=== PATIENT | female | born 1955 | race Caucasian/White ===

== ENCOUNTER 2017-10-27 22:52 | Observation (INO) | payer OTHER ==
[2017-10-27] MEDS ORDERED: NS 0.9% 1000 ML* 1,000 ML IV ONE (23:00)
[2017-10-27 23:25] LABS: ABS Basophils 0.1 10^3/ul (0-0.2); ABS Eosinophils 0.2 10^3/ul (0-0.6); ABS Lymphocytes 1.4 10^3/ul (1.0-4.8); ABS Monocytes 0.5 10^3/ul (0-0.8); ABS Neutrophils 6.5 10^3/ul (1.5-7.7); ABS Nucleated RBC 0 10^3/ul; Eosinophil % 2.2 % (0-6); Hematocrit 45 % (35-47); Hemoglobin 15.5 g/dl (12.0-16.0); Lymphocyte % 16.2 % (25-47); Mean Corpuscular HGB Conc 34 g/dl (31-36); Mean Corpuscular Hemoglobin 30 pg (27-31); Mean Corpuscular Volume 88 fL (80-97); Mean Platelet Volume 8 um3 (7.4-10.4); Nucleated Red Blood Cells % 0; Platelet Count 216 10^3/ul (150-450); Red Blood Count 5.09 10^6/ul (4.0-5.4); Red Cell Distribution Width 15 % (10.5-15); White Blood Count 8.7 10^3/ul (3.5-10.8)
[2017-10-27 23:34] LABS: INR 0.92 (0.77-1.02)
[2017-10-27] MEDS ORDERED: Alteplase* 100 MG VIAL ONE (23:40)
[2017-10-27] MEDS ORDERED: Alteplase* 100 MG VIAL IV ONE ×2 (23:41)
[2017-10-28 00:03] LABS: EGFR Non-African American 85.1 (>60)
[2017-10-28] MEDS ORDERED: Iodixanol* (CONTRAST) 320 MG/ML 100 ML SDV IV ONE (00:14)
[2017-10-28] MEDS ORDERED: Ondansetron INJ* 2 MG/ML VIAL ONE (00:20)
[2017-10-28] MEDS ORDERED: Ondansetron INJ* 2 MG/ML VIAL IV ONE (00:29)
[2017-10-28] MEDS ORDERED: Labetalol IV* 5 MG/ML 20 ML VIAL IV PUSH PRN (02:10)
[2017-10-28] MEDS ORDERED: Atorvastatin* 80 MG TAB PO ONE (02:11)
[2017-10-28] MEDS ORDERED: Ondansetron INJ* 2 MG/ML VIAL IV PRN (02:13)
[2017-10-28] MEDS ORDERED: NS 0.9% 1000 ML* 1,000 ML IV SCH ×3 (02:15→13:15)
--- NOTE | 2017-10-28 03:34 | ED ---
Rowdy Reeder Jennifer, scribed for Juvencio Cormier MD on 10/27/17 at 2306 . Neurological HPI - HPI Summary HPI Summary: The patient is a 61 year old female who was brought in by ambulance for stroke like symptoms that began at 21:30. Her boyfriend was present at the time of the stroke. She denies any previous strokes. The patients boyfriend reports that he s been with her for 28 years, and she was only hospitalized once for pneumonia. LEVEL 5 CAVEAT: HPI limited due to patient's neurological symptoms. - History of Current Complaint Stated Complaint: POSS STROKE Hx Obtained From: Patient Onset/Duration: Sudden Onset, Started hours ago - about one hour ago Timing: Constant Onset Severity: Mild Current Severity: Mild Character: Impaired Speech, Responsiveness Associated Signs and Symptoms: Positive: Confusion, Impaired Speech - Allergy/Home Medications Allergies/Adverse Reactions: Allergies Allergy/AdvReac Type Severity Reaction Status Date / Time aspirin Allergy Unknown Verified 10/27/17 23:35 Reaction Details PMH/Surg Hx/FS Hx/Imm Hx Endocrine/Hematology History: Reports: Hx Diabetes - Type II Cardiovascular History: Denies: Hx Hypercholesterolemia, Hx Hypertension Neurological History: Denies: Other Neuro Impairments/Disorders - Stroke - Family History Known Family History: Positive: Unknown - Limited by pt's neurological symptoms - Social History Smoking Status (MU): Smoker, Current Status Unknown - Additional Comments History Additional Comments: LEVEL 5 CAVEAT: PMH limited due to patient's neurological symptoms. Review of Systems Negative: Fever Negative: Chest Pain Negative: Shortness Of Breath Neurological: Other - Confusion Positive: Slurred Speech All Other Systems Reviewed And Are Negative: Yes - Comments Additional Review of Systems Comments: LEVEL 5 CAVEAT: ROS limited due to patient's neurological symptoms. Physical Exam - Summary Physical Exam Summary: Appearance: Well appearing, no pain distress Skin: warm, dry, reflects adequate perfusion Head/face: normal Eyes: EOMI, VERENICE ENT: normal Neck: supple, non-tender Respiratory: CTA, breath sounds present Cardiovascular: Tachycardic, regular rhythm. pulses symmetrical Abdomen: non-tender, soft Bowel: present Musculoskeletal: normal, strength/ROM intact. No Lower extremity edema. Neuro: alert. dysarthria. Smile asymmetry on right. Right upper extremity ataxia and drift. LEVEL 5 CAVEAT: Physical Exam limited due to patient's neurological symptoms. Triage Information Reviewed: Yes Vital Signs On Initial Exam: Initial Vitals Temp Pulse Resp BP Pulse Ox 35.8 C 96 16 126/81 99 10/27/17 23:00 10/27/17 23:00 10/27/17 23:00 10/27/17 23:00 10/27/17 23:00 Vital Signs Reviewed: Yes Diagnostics - Vital Signs Vital Signs Temp Pulse Resp BP Pulse Ox 10/28/17 02:00 95 27 117/75 98 10/28/17 01:45 95 20 108/72 97 10/28/17 01:32 100 28 104/67 96 10/28/17 01:00 115/72 10/28/17 00:30 97 25 114/70 96 10/28/17 00:15 94 27 111/80 92 10/28/17 00:14 95 30 93 10/28/17 00:07 92 31 130/73 93 10/28/17 00:01 94 28 129/78 94 10/28/17 00:00 93 31 94 10/27/17 23:48 94 28 117/72 93 10/27/17 23:35 126/81 10/27/17 23:19 95 21 95 10/27/17 23:00 35.8 C 96 16 126/81 99 - Laboratory Lab Results: Lab Results 10/27/17 10/27/17 10/27/17 Range/Units 23:10 23:10 23:10 WBC 8.7 (3.5-10.8) 10^3/ul RBC 5.09 (4.0-5.4) 10^6/ul Hgb 15.5 (12.0-16.0) g/dl Hct 45 (35-47) % MCV 88 (80-97) fL MCH 30 (27-31) pg MCHC 34 (31-36) g/dl RDW 15 (10.5-15) % Plt Count 216 (150-450) 10^3/ul MPV 8 (7.4-10.4) um3 Neut % (Auto) 74.7 (38-83) % Lymph % (Auto) 16.2 L (25-47) % [place] % (Auto) 6.0 (1-9) % Eos % (Auto) 2.2 (0-6) % Baso % (Auto) 0.9 (0-2) % Absolute Neuts (auto) 6.5 (1.5-7.7) 10^3/ul Absolute Lymphs (auto) 1.4 (1.0-4.8) 10^3/ul Absolute Monos (auto) 0.5 (0-0.8) 10^3/ul Absolute Eos (auto) 0.2 (0-0.6) 10^3/ul Absolute Basos (auto) 0.1 (0-0.2) 10^3/ul Absolute Nucleated RBC 0 10^3/ul Nucleated RBC % 0 INR (Anticoag Therapy) 0.92 (0.77-1.02) APTT 30.8 (26.0-36.3) seconds Sodium 130 L (133-145) mmol/L Potassium 4.2 (3.5-5.0) mmol/L Chloride 96 L (101-111) mmol/L Carbon Dioxide 24 (22-32) mmol/L Anion Gap 10 (2-11) mmol/L BUN 16 (6-24) mg/dL Creatinine 0.70 (0.51-0.95) mg/dL Est GFR ( Amer) 109.4 (>60) Est GFR (Non-Af Amer) 85.1 (>60) BUN/Creatinine Ratio 22.9 H (8-20) Glucose 167 H (70-100) mg/dL Lactic Acid (0.5-2.0) mmol/L Calcium 10.1 (8.6-10.3) mg/dL Total Bilirubin 0.50 (0.2-1.0) mg/dL AST 23 (13-39) U/L ALT 13 (7-52) U/L Alkaline Phosphatase 107 H (34-104) U/L Troponin I 0.07 H* (<0.04) ng/mL B-Natriuretic Peptide ( - 100) pg/mL Total Protein 7.8 (6.4-8.9) g/dL Albumin 4.1 (3.2-5.2) g/dL Globulin 3.7 (2-4) g/dL Albumin/Globulin Ratio 1.1 (1-3) Triglycerides 148 mg/dL Cholesterol 163 mg/dL LDL Cholesterol 92 mg/dL HDL Cholesterol 41.4 mg/dL 10/27/17 10/27/17 Range/Units 23:10 23:10 WBC (3.5-10.8) 10^3/ul RBC (4.0-5.4) 10^6/ul Hgb (12.0-16.0) g/dl Hct (35-47) % MCV (80-97) fL MCH (27-31) pg MCHC (31-36) g/dl RDW (10.5-15) % Plt Count (150-450) 10^3/ul MPV (7.4-10.4) um3 Neut % (Auto) (38-83) % Lymph % (Auto) (25-47) % [place] % (Auto) (1-9) % Eos % (Auto) (0-6) % Baso % (Auto) (0-2) % Absolute Neuts (auto) (1.5-7.7) 10^3/ul Absolute Lymphs (auto) (1.0-4.8) 10^3/ul Absolute Monos (auto) (0-0.8) 10^3/ul Absolute Eos (auto) (0-0.6) 10^3/ul Absolute Basos (auto) (0-0.2) 10^3/ul Absolute Nucleated RBC 10^3/ul Nucleated RBC % INR (Anticoag Therapy) (0.77-1.02) APTT (26.0-36.3) seconds Sodium (133-145) mmol/L Potassium (3.5-5.0) mmol/L Chloride (101-111) mmol/L Carbon Dioxide (22-32) mmol/L Anion Gap (2-11) mmol/L BUN (6-24) mg/dL Creatinine (0.51-0.95) mg/dL Est GFR ( Amer) (>60) Est GFR (Non-Af Amer) (>60) BUN/Creatinine Ratio (8-20) Glucose (70-100) mg/dL Lactic Acid 1.6 (0.5-2.0) mmol/L Calcium (8.6-10.3) mg/dL Total Bilirubin (0.2-1.0) mg/dL AST (13-39) U/L ALT (7-52) U/L Alkaline Phosphatase (34-104) U/L Troponin I (<0.04) ng/mL B-Natriuretic Peptide 523 H ( - 100) pg/mL Total Protein (6.4-8.9) g/dL Albumin (3.2-5.2) g/dL Globulin (2-4) g/dL Albumin/Globulin Ratio (1-3) Triglycerides mg/dL Cholesterol mg/dL LDL Cholesterol mg/dL HDL Cholesterol mg/dL Result Diagrams: 10/27/17 23:10 10/27/17 23:10 Lab Statement: Any lab studies that have been ordered have been reviewed, and results considered in the medical decision making process. - Radiology CXR Xray Interpretation: Positive (See Comments) - Increased interstitial markings. Possibly right basilar infiltrate. Mild CHF, no effusion. Right middle lobe atelectasis versus infiltrate. Possible aspiration. Radiology Interpretation Completed By: ED Physician - CT CTA Head and Neck CT Interpretation: Positive (See Comments) - Brain: The anterior and posterior arterial circulations are patent. No stenosis occlusion dissection or aneurysm. Aterosclerotic calcification along the garcia of the carotid siphons. Neck: There is irregular heterogeneous plaque in the proximal left internal carotid artery near the bifurcation. Best seen on the cross-sectional images is one area just distal to the bifurcation where the stenosis may be 70% or greater. However, the calcium makes it difficult to assess the exact degree of stenosis. MRA or ultrasound may be helpfiul. There is atherosclerotic plaque at the right carotid bifurcation but no hemodynamically signiicant stenosis of the cervical right carotid artery. Bilateral vertebral arteries are patent. 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 Interstitial and emphysematous changes seen at the lung apices. CT Interpretation Completed By: Radiologist - EKG 23:07 Cardiac Rate: NL EKG Rhythm: Sinus Rhythm - [address] Segment: Non-Specific EKG Interpretation: Normal axis, low voltage - Additional Comments Diagnostic Additional Comments: Brain CT. Interpreted by Dr. Odilon Houston. FINDINGS: There is a small vessel infarct of the right anterior thalamus of indeterminate age. Correlate with symptoms. No other obvious infarct. Please note that infarcts less than 6 hours from onset may not be detectable on CT. Generalized chronic white matter disease is noted. No hemorrhage. No mass. Osseous structures are intact. Dr. Cormier has reviewed this report. CTA head/neck: + L sided critical carotid atherosclerotic narrowing of ~70+%. R sided plaque narrowing at R carotid at confluence with brachiocephalic a. NIH Scale - NIH Scale Level of Consciousness: Alert/Keenly Responsive Ask Patient the Month and His/Her Age: Neither Correct/Aphasic Ask Pt to Open/Close Eyes and Manufacturing Sr Engineer/Release Non-Paretic Hand: Both Correctly Best Gaze (Only Horizontal Eye Movement): Normal Visual Field Testing: No Visual Loss Facial Paresis-Pt to Smile & Close Eyes or Grimace Symmetry: Minor Paralysis Motor Function - Right Arm: Drifts LT 10 seconds Motor Function - Left Arm: No Drift-Holds 10 Seconds Motor Function - Right Leg: No Drift-Holds 10 Seconds Motor Function - Left Leg: No Drift-Holds 10 Seconds Limb Ataxia-Must be out of Proportion to Weakness Present: Present in One Limb Sensory (Use Pinprick to Test Arms/Legs/Trunk/Face): Normal Best Language (Describe Picture, Name Items): Severe Aphasia Dysarthria (Read Several Words): Slurs Some Words Extinction and Inattention: No Abnormality Total Score: 8 Re-Evaluation - Re-Evaluation First Eval Change: Improved - during tPA administration pt improved steadily. Speech normalizing. Prior to tPA R weakness/droop was improved. Course/Dx - Course Course Of Treatment: Pt with abrupt onset of stroke sx involving speech center and RUE/Face. Within tPA window. CT neg for acute blood. Telestroke c/s obtained at tPA requested. tPA started within window. Pt steadily improved on tx. No deterioration. BPs wnl. Pt kept in ER thru tPA admin. CTA head/neck obtained after -- vascular changes but no acute thrombus. Hospitalist on-board beginning with tPA admit. She wished to keep in ER until CTA. Pt remained stable and was admitted to ICU here. - Differential Dx Differential Diagnoses Neuro: Positive: Cerebrovascular Accident - Diagnoses Provider Diagnoses: Acute CVA (cerebrovascular accident), Aphasia, Weakness of right upper extremity - Physician Notifications Discussed Care Of Patient With: Jovanni Tucker Time Discussed With Above Provider: 23:23 Instructed by Provider To: Other - Dr. Jovanni Tucker, stroke attending, recommends TPA for the patient. Dr. Tucker also recommends CTA head and neck after TPA. Also discussed patient care with Dr. Flores, hospitalist, who will admit the patient. - Critical Care Time Critical Care Time: 75-104 min - Exclusive of separately billable procedures. Discharge - Discharge Plan Condition: Critical Disposition: ADMITTED TO [facility] documentation as recorded by the Rowdy castillo Jennifer accurately reflects the service I personally performed and the decisions made by , Juvencio Cormier MD.
[2017-10-28 05:24] LABS: ABS Basophils 0 10^3/ul (0-0.2); ABS Eosinophils 0 10^3/ul (0-0.6); ABS Lymphocytes 1.2 10^3/ul (1.0-4.8); ABS Monocytes 0.3 10^3/ul (0-0.8); ABS Neutrophils 6.1 10^3/ul (1.5-7.7); ABS Nucleated RBC 0 10^3/ul; Eosinophil % 0.6 % (0-6); Hematocrit 43 % (35-47); Hemoglobin 14.4 g/dl (12.0-16.0); Lymphocyte % 15.5 % (25-47); Mean Corpuscular HGB Conc 34 g/dl (31-36); Mean Corpuscular Hemoglobin 30 pg (27-31); Mean Corpuscular Volume 88 fL (80-97); Mean Platelet Volume 9 um3 (7.4-10.4); Nucleated Red Blood Cells % 0; Platelet Count 211 10^3/ul (150-450); Red Blood Count 4.82 10^6/ul (4.0-5.4); Red Cell Distribution Width 15 % (10.5-15); White Blood Count 7.7 10^3/ul (3.5-10.8)
[2017-10-28 05:38] LABS: EGFR Non-African American 94.3 (>60)
--- NOTE | 2017-10-28 07:06 | PN ---
Progress Note - Progress Note Date of Service: 10/28/17 Note: Troponin noted to be even more elevated at 2.0. She can not receive plavix (or ASA-allergy) as she received tPA last evening. Will continue to follow the troponin. Echo ordered.
--- NOTE | 2017-10-28 07:30 | RAD ---
INDICATION: Stroke COMPARISON: None. TECHNIQUE: Contiguous axial sections of the brain were obtained from the skull base to the vertex without contrast. FINDINGS: The ventricles, cisterns and sulci are within normal limits. There is periventricular and subcortical white matter hypoattenuation most consistent with chronic microvascular disease. There is a more focal area of hypoattenuation at the anterior right thalamus. Otherwise the morales-white matter differentiation is adequately maintained and there is no sulcal effacement. No significant focal abnormality or mass effect is present. There is no evidence for intracranial hemorrhage. No significant focal osseous abnormality is present. The visualized portion of the paranasal sinuses appear clear. The mastoid air cells are well aerated bilaterally. IMPRESSION: Evidence of chronic microvascular disease and age indeterminant focal infarction in the right anterior thalamus.
--- NOTE | 2017-10-28 07:31 | RAD ---
INDICATION: Neurologic changes code morales. COMPARISON: There are no prior studies available for comparison. TECHNIQUE: A portable view of the chest was obtained. FINDINGS: The heart is moderately enlarged. There is diffuse prominence of the interstitial markings with more prominent infiltrates at both lung bases. No pleural effusion is seen. IMPRESSION: FINDINGS SUGGESTIVE OF CONGESTIVE HEART FAILURE OR PNEUMONIA.
[2017-10-28] MEDS ORDERED: Dextrose 50% Syringe 50 ML* 25 GM/50 ML SYRINGE IV PUSH PRN (07:38)
--- NOTE | 2017-10-28 07:40 | PN ---
Subjective Date of Service: 10/28/17 Interval History: No neuro sx's. No prior neuro events per patient. She denies chest pain, cough , SOB, palpitations. Objective Active Medications: Atorvastatin Calcium (Lipitor*) 80 mg PO 2100 RONALD Sodium Chloride (Ns 0.9% 1000 Ml*) 1,000 mls @ 75 mls/hr IV PER RATE [facility] Last Admin: 10/28/17 04:49 Dose: 75 mls/hr Labetalol HCl (Trandate Iv*) 20 mg IV PUSH Q6H PRN PRN Reason: SBP>180 DBP>110 Ondansetron HCl (Zofran Inj*) 4 mg IV Q6H PRN PRN Reason: NAUSEA Vital Signs - 8 hr 10/28/17 10/28/17 10/28/17 02:30 02:45 03:00 Temperature Pulse Rate 95 94 97 Respiratory 30 28 25 Rate Blood Pressure 110/72 104/75 113/78 (mmHg) O2 Sat by Pulse 98 98 97 Oximetry 10/28/17 10/28/17 10/28/17 03:05 03:15 03:30 Temperature 97.7 F 97.7 F Pulse Rate 94 95 96 Respiratory 20 26 27 Rate Blood Pressure 113/78 124/72 129/84 (mmHg) O2 Sat by Pulse 98 98 97 Oximetry 10/28/17 10/28/17 10/28/17 03:34 03:45 03:49 Temperature 98.4 F Pulse Rate 96 94 95 Respiratory 27 26 12 Rate Blood Pressure 115/79 105/69 (mmHg) O2 Sat by Pulse 98 98 99 Oximetry 10/28/17 10/28/17 10/28/17 04:00 04:30 05:00 Temperature Pulse Rate 87 91 90 Respiratory 23 21 22 Rate Blood Pressure 103/69 111/72 116/66 (mmHg) O2 Sat by Pulse 99 93 89 Oximetry 10/28/17 10/28/17 10/28/17 05:30 05:55 06:00 Temperature Pulse Rate 83 90 Respiratory 22 22 22 Rate Blood Pressure 90/59 95/63 (mmHg) O2 Sat by Pulse 91 92 Oximetry 10/28/17 06:30 Temperature Pulse Rate 88 Respiratory 22 Rate Blood Pressure 97/63 (mmHg) O2 Sat by Pulse 94 Oximetry Oxygen Devices in Use Now: Nasal Cannula Appearance: Alert, partly up in bed. In good spirits. Looks comfortable. Eyes: No Scleral Icterus Neck: NL Appearance and Movements; NL JVP, No Thyroid Enlargement, Masses Respiratory: Symmetrical Chest Expansion and Respiratory Effort, Clear to Auscultation, Clear to Percussion Cardiovascular: NL Sounds; No Murmurs; No JVD, RRR, No Edema, - Extremities: No Edema, No Clubbing, Cyanosis, - Skin: No Rash or Ulcers, No Nodules or Sclerosis, - Neurological: Alert and Oriented x 3, NL Sensation Result Diagrams: 10/28/17 05:08 10/28/17 06:05 Additional Lab and Data: Lab Results 10/27/17 10/27/17 10/27/17 Range/Units 23:10 23:10 23:10 WBC 8.7 (3.5-10.8) 10^3/ul RBC 5.09 (4.0-5.4) 10^6/ul Hgb 15.5 (12.0-16.0) g/dl Hct 45 (35-47) % MCV 88 (80-97) fL MCH 30 (27-31) pg MCHC 34 (31-36) g/dl RDW 15 (10.5-15) % Plt Count 216 (150-450) 10^3/ul MPV 8 (7.4-10.4) um3 Neut % (Auto) 74.7 (38-83) % Lymph % (Auto) 16.2 L (25-47) % Heard % (Auto) 6.0 (1-9) % Eos % (Auto) 2.2 (0-6) % Baso % (Auto) 0.9 (0-2) % Absolute Neuts (auto) 6.5 (1.5-7.7) 10^3/ul Absolute Lymphs (auto) 1.4 (1.0-4.8) 10^3/ul Absolute Monos (auto) 0.5 (0-0.8) 10^3/ul Absolute Eos (auto) 0.2 (0-0.6) 10^3/ul Absolute Basos (auto) 0.1 (0-0.2) 10^3/ul Absolute Nucleated RBC 0 10^3/ul Nucleated RBC % 0 INR (Anticoag Therapy) 0.92 (0.77-1.02) APTT 30.8 (26.0-36.3) seconds Sodium 130 L (133-145) mmol/L Potassium 4.2 (3.5-5.0) mmol/L Chloride 96 L (101-111) mmol/L Carbon Dioxide 24 (22-32) mmol/L Anion Gap 10 (2-11) mmol/L BUN 16 (6-24) mg/dL Creatinine 0.70 (0.51-0.95) mg/dL Est GFR ( Amer) 109.4 (>60) Est GFR (Non-Af Amer) 85.1 (>60) BUN/Creatinine Ratio 22.9 H (8-20) Glucose 167 H (70-100) mg/dL Lactic Acid (0.5-2.0) mmol/L Calcium 10.1 (8.6-10.3) mg/dL Total Bilirubin 0.50 (0.2-1.0) mg/dL AST 23 (13-39) U/L ALT 13 (7-52) U/L Alkaline Phosphatase 107 H (34-104) U/L Troponin I 0.07 H* (<0.04) ng/mL B-Natriuretic Peptide ( - 100) pg/mL Total Protein 7.8 (6.4-8.9) g/dL Albumin 4.1 (3.2-5.2) g/dL Globulin 3.7 (2-4) g/dL Albumin/Globulin Ratio 1.1 (1-3) Triglycerides 148 mg/dL Cholesterol 163 mg/dL LDL Cholesterol 92 mg/dL HDL Cholesterol 41.4 mg/dL 10/27/17 10/27/17 Range/Units 23:10 23:10 WBC (3.5-10.8) 10^3/ul RBC (4.0-5.4) 10^6/ul Hgb (12.0-16.0) g/dl Hct (35-47) % MCV (80-97) fL MCH (27-31) pg MCHC (31-36) g/dl RDW (10.5-15) % Plt Count (150-450) 10^3/ul MPV (7.4-10.4) um3 Neut % (Auto) (38-83) % Lymph % (Auto) (25-47) % Heard % (Auto) (1-9) % Eos % (Auto) (0-6) % Baso % (Auto) (0-2) % Absolute Neuts (auto) (1.5-7.7) 10^3/ul Absolute Lymphs (auto) (1.0-4.8) 10^3/ul Absolute Monos (auto) (0-0.8) 10^3/ul Absolute Eos (auto) (0-0.6) 10^3/ul Absolute Basos (auto) (0-0.2) 10^3/ul Absolute Nucleated RBC 10^3/ul Nucleated RBC % INR (Anticoag Therapy) (0.77-1.02) APTT (26.0-36.3) seconds Sodium (133-145) mmol/L Potassium (3.5-5.0) mmol/L Chloride (101-111) mmol/L Carbon Dioxide (22-32) mmol/L Anion Gap (2-11) mmol/L BUN (6-24) mg/dL Creatinine (0.51-0.95) mg/dL Est GFR ( Amer) (>60) Est GFR (Non-Af Amer) (>60) BUN/Creatinine Ratio (8-20) Glucose (70-100) mg/dL Lactic Acid 1.6 (0.5-2.0) mmol/L Calcium (8.6-10.3) mg/dL Total Bilirubin (0.2-1.0) mg/dL AST (13-39) U/L ALT (7-52) U/L Alkaline Phosphatase (34-104) U/L Troponin I (<0.04) ng/mL B-Natriuretic Peptide 523 H ( - 100) pg/mL Total Protein (6.4-8.9) g/dL Albumin (3.2-5.2) g/dL Globulin (2-4) g/dL Albumin/Globulin Ratio (1-3) Triglycerides mg/dL Cholesterol mg/dL LDL Cholesterol mg/dL HDL Cholesterol mg/dL Microbiology and Other Data: Microbiology 10/28/17 04:00 Nasal Screen MRSA (PCR)(NAYAN) - Final Nasal Mrsa Not Detected Assess/Plan/Problems-Billing Assessment: - Patient Problems (1) Cerebrovascular accident aborted by administration of thrombolytic agent Current Visit: Yes Status: Acute Code(s): I63.9 - CEREBRAL INFARCTION, UNSPECIFIED SNOMED Code(s): 550036223 Comment: MRI pending. No neuro sequelae. ? start ASA 10/29. I will discuss with Dr. Messina, also review CTA results with him. Continue high-dose statin. (2) Diabetes Current Visit: Yes Status: Acute Code(s): E11.9 - TYPE 2 DIABETES MELLITUS WITHOUT COMPLICATIONS SNOMED Code(s): 98725273 Comment: FS glucose with Lispro by SS. Metformin on hold. (3) Tobacco abuse Current Visit: Yes Status: Acute Code(s): Z72.0 - TOBACCO USE SNOMED Code( s): 681939114 Comment: Patient advised to quit smoking and avoid second hand smoke. (4) Depression Current Visit: Yes Status: Acute Code(s): F32.9 - MAJOR DEPRESSIVE DISORDER , SINGLE EPISODE, UNSPECIFIED SNOMED Code(s): 72461119 Comment: Give 50% home dose sertraline.
--- NOTE | 2017-10-28 07:53 | RAD ---
CPT II: CPT II Codes: 3100F INDICATION: Sudden onset right upper extremity weakness and aphasia. COMPARISON: Same day noncontrast CT of the brain that shows evidence of chronic microvascular disease. TECHNIQUE: A CT angiogram of the head and neck was performed with 80 cc of Visipaque 320. Contiguous axial sections were obtained from the thoracic inlet through the [place]. Images were reconstructed in the sagittal, coronal planes and in a 3-D volume rendered format. The distal cervical internal carotid artery diameter is used as the denominater for stenosis measurement. CTA NECK: At the bifurcation of the right common carotid artery and right subclavian artery there is coarsely calcified atherosclerosis. At the proximal most inferior most portion of the right common carotid artery (axial image 30 and coronal image 31) there is high-grade stenosis of the artery narrowed at least 70% degree stenosis. At the origin of the left subclavian artery (axial image 9 and coronal image 39) there is high-grade stenosis with greater than 50% degree stenosis. The subclavian artery is adequately patent. Distally. Right: The right external carotid artery appears to be occluded at its bifurcation point with the internal carotid artery. Below the carotid bulb the right common carotid artery measures 7 mm in diameter. There is coarsely calcified atherosclerosis at the carotid bulb narrowing the short axis diameter to 4 mm yielding approximately 50% degree stenosis. Left: Below the carotid bulb the common carotid artery measures 7 mm in diameter. There is mixed attenuation atherosclerosis at the carotid bulb causing high-grade stenosis measuring 2 mm and short axis diameter corresponding to approximately 71% degree stenosis. The left vertebral artery is miniscule relative to the right but appears to be patent up to its confluence to form the basilar tip artery. CTA of the brain: The internal carotid, anterior and middle cerebral arteries appear are patent without high grade stenosis or occlusion. There is coarse calcification at the bilateral petrous carotid arteries. The vertebral, basilar and posterior cerebral arteries appear patent without high grade stenosis or occlusion. The [place] is complete with bilateral posterior communicating arteries identified. No focal luminal filling defect, aneurysm or vascular malformation is seen. NON-ARTERIAL FINDINGS: Emphysematous changes are seen in the bilateral lung apices. Degenerative changes of the cervical spine include straightening of the normal cervical lordosis and loss of intervertebral disc height at multiple levels. IMPRESSION: 1. There is high-grade stenosis at the origin of the right common carotid artery immediately beyond the bifurcation with the right subclavian artery. 2. The origin of the right external carotid artery appears to be occluded. 3. Mixed attenuation atherosclerosis at the right carotid bulb yields approximately 50% degree stenosis. 4. Mixed attenuation atherosclerosis at the left carotid bulb causes high-grade stenosis approximately 70%. 5. Stenosis, likely greater than 50%, at the origin of the left subclavian artery. Please correspond to symptoms of left upper extremity arterial insufficiency and/or subclavian steal phenomenon. 6. Miniscule left vertebral artery, likely congenital.
[2017-10-28 08:00] LABS: Urine Appearance Clear; Urine Blood 1+ (Negative); Urine Color Yellow; Urine Ketones Negative (Negative); Urine Protein Negative (Negative); Urine Specific Gravity 1.029 (1.010-1.030); Urine Urobilinogen Negative (Negative)
--- NOTE | 2017-10-28 08:49 | HP ---
CC: Dr. Shankar * HISTORY AND PHYSICAL: DATE OF ADMISSION: 10/28/17 PRIMARY CARE PROVIDER: Dr. Shankar. CHIEF COMPLAINT: Dysarthria and right-sided weakness. HISTORY OF PRESENT ILLNESS: Ms. Martinez is a 61-year-old female with a history of type 2 diabetes, who presents to the emergency room with complaints of dysarthria, difficulty getting words out, and right-sided weakness. The patient was reportedly cleaning a dog kennel when she suddenly was unable to get up from the floor. The patient's daughter was contacted. She contacted the patient's [id number] who got her up off the floor. The patient's was also notified and he came immediately home. When he arrived home at approximately 2130, the patient was noted to have an expressive aphasia and difficulty speaking. He states her speech was garbled and mumbling. He also noted a droop to the right corner of the mouth and difficulty moving the right arm. The patient's immediately noticed the signs of stroke and called 911. Prior to EMS getting to the house, the patient was seated in the chair. Twice, she was noted to be leaning/falling to the right. PAST MEDICAL HISTORY: 1. Asthma. 2. Diabetes. PAST SURGICAL HISTORY: None. MEDICATIONS: Unknown. ALLERGIES: ASPIRIN. FAMILY HISTORY: Mom is living. She is in her 80s. She has diabetes. Dad in his 50s; it is unclear what he from. SOCIAL HISTORY: The patient smokes half pack per day. She does not drink alcohol. She is disabled. Rik Monge is her significant other. They have been together for the last 28 years. He is her healthcare proxy. She has 4 children. REVIEW OF SYSTEMS: Unobtainable from the patient due to significant expressive aphasia. PHYSICAL EXAMINATION GENERAL: The patient is a well-developed, obese, middle-aged female, seen lying on the stretcher, in no acute distress. VITAL SIGNS: Blood pressure 117/75, pulse 96, respirations 27, temp 96.4, O2 sat 98% on 2 L. HEENT: Pupils are equal and round. Extraocular muscles are intact. Oropharynx is clear. Oral mucosa is moist. There is no submandibular, cervical , or subclavicular adenopathy. Thyroid is not enlarged. No thyroid nodules are noted. PULMONARY: Lungs are clear to auscultation anteriorly. CARDIAC: Normal S1 and S2. Regular rate and rhythm. I do not appreciate any murmurs. ABDOMEN: Bowel sounds are present. Abdomen is soft, nontender, and nondistended. MUSCULOSKELETAL: There is no cyanosis or clubbing of the digits. There is full active range of motion of the bilateral lower extremities and left upper extremity. Right upper extremity movement is slightly impaired though she is able to move the arm and lift it over her head. NEUROLOGIC: Cranial nerves II through XII appear to be grossly intact though there is a very minor right facial droop was noted at the corner of the mouth. Bilateral lower extremity strength is 5/5. Left upper extremity strength is 5/ 5. Right upper extremity strength is 4-/5. Sensation is intact. The patient has a significant expressive aphasia as well as some mild dysarthria. PSYCH: The patient is alert. I am unable to assess orientation due to her expressive aphasia. SKIN: There are no rashes. DIAGNOSTIC STUDIES/LAB DATA: WBC 8.7, hemoglobin 15.5, hematocrit 45, platelets 216. INR 0.92. Sodium 130, potassium 4.2, chloride 96, CO2 of 24, BUN 16, creatinine 0.7, glucose 167, lactic acid 1.6, calcium 10.1. Bilirubin 0.5, AST 23, ALT 13, alk phos 107. Troponin 0.07. BNP 523. Albumin 4.1. Lipid profile at the time of presentation to the emergency room, total cholesterol 163, LDL 92, HDL 41.4, triglycerides 148. EKG reveals normal sinus rhythm with a slightly prolonged QRS interval, waves are inverted in inferior and lateral leads. Chest x-ray to my evaluation, I questioned pulmonary edema. CT brain: There is a small vessel infarct of the right anterior thalamus of indeterminate age. No other obvious infarct. No hemorrhage. No mass. CTA head and neck: There is an irregular heterogeneous plaque in the proximal left internal carotid artery near the bifurcation. There is also fairly severe stenosis at the origin of the right common carotid artery as it takes off at the brachiocephalic. The stenosis of the left proximal internal carotid artery maybe 70% or greater. Bilateral vertebral arteries are patent. 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 Interstitial and emphysematous changes are seen in the lung apices. ASSESSMENT AND PLAN: Ms. Martinez is a 61-year-old female with a known history of type 2 diabetes and ongoing tobacco abuse, who presents to the emergency room with complaints of dysarthria, expressive aphasia, and right-sided weakness , and is clinically diagnosed with an acute cerebrovascular accident. 1. Acute cerebrovascular accident. The patient was evaluated via telestroke services from [facility]. Ultimately, it was determined the patient was a tPA candidate. The patient received tPA and following the administration of the tPA, the patient's speech is improved. The patient will be admitted to the intensive care unit with post tPA guidelines followed. A followup CT scan will be obtained at approximately 2300 on . An MRI of the brain has been ordered. The patient will have a transthoracic echocardiogram. I do question whether or not carotid ultrasound maybe useful in further evaluating the left internal carotid artery stenosis. Neurology consultation will be requested. The patient is allergic to ASPIRIN; however, Plavix will be held per post tPA guidelines. The patient will be again monitored in the ICU. Telemetry will be utilized. The patient's blood pressure currently is soft. She will have normal saline running at 75 mL per hour. P.r.n. labetalol has been ordered if her blood pressure becomes markedly elevated. I do question whether or not the patient's stroke may have originated from the internal carotid artery stenosis. I question if she would benefit from more urgent carotid endarterectomy. Lipid profile will be obtained at 0600. This one will be fasting. Hemoglobin A1c will also be obtained at 0600. Neuro checks are per post tPA guidelines. PT and OT need to be ordered; however, I will hold off at this point. 2. Type diabetes. As the patient is post tPA, I will not check fingersticks at this point. She is unaware what her home medication list is. We will need to ask the patient's to call with the medications once he gets home. Again, hemoglobin A1c will be obtained with morning labs. 3. Elevated troponin. The patient has a mildly elevated troponin of 0.07. She is able to deny chest pain to me. I will get followup troponin with morning labs. EKG does show T-wave inversions in the inferior and lateral leads. This will need to be followed. An EKG will be obtained later this morning. Additionally, the patient's BNP is elevated. This in conjunction with her chest x-ray may indicate that she has some congestive heart failure. As above, transthoracic echocardiogram will be obtained today. We will need to monitor her respiratory status carefully given IM infusing normal saline at 75 mL per hour. 4. DVT prophylaxis. According to the Adult Thrombosis Prophylaxis Risk Factor Assessment Guide, the patient has a total risk factor score of 8, making her the highest risk. At this point, she will not be receiving DVT prophylaxis as she does receive tPA. Once 24 hours is up, she should be started on DVT prophylaxis. 5. Code status is full. The patient's significant other is her healthcare proxy. TIME SPENT: Seventy minutes was spent admitting this patient. [id number]/[facility]PS #: [id number] TERESSA
[2017-10-28] MEDS: Sertraline* 25 MG TAB PO SCH (08:52)
[2017-10-28] MEDS: Insulin LISPRO* 1 UNITS UNIT SUBCUT SCH ×3 (12:40→22:38)
[2017-10-28] MEDS ORDERED: Perflutren Lipid Microsphere* 3 ML VIAL ONE (12:50)
--- NOTE | 2017-10-28 15:29 | ECHO ---
Patient: CRISTY APPIAH [facility] Rec#: [id number] : 1955 Date: 10/28/2017 Age: 61y Height: 154.94 cm / 61.0 in Weight: 81.19 kg / 178.9 lbs Sex: F BSA: 1.8 Room#: [facility] Admit Date#: 10/28/2017 Type: Inpatient Referring: Maribel Flores DO Reading: Ellen Pena MD Cable Installation Technician: Allyson Lezama RD Transthoracic Echocardiogram Indication: CVA BP: 97/63 HR: 83 Rhythm: A-Fib Findings History: DM, HTN, asthma, s/p TPA, smoker. Technical Comments: The study is technically difficult. The study is technically limited due to poor apical windows. The study is technically limited due to patient body habitus. Completed at 1330. Left Ventricle: The left ventricular chamber size is mildly dilated. Mild concentric left ventricular hypertrophy is observed. There is evidence of a dilated cardiomyopathy. There is global hypokinesis of the left ventricle with minor regional variation.Inferior/posterior wall akinetic, severe global hypokinesis. There is severely decreased left ventricular systolic function. The estimated ejection fraction is 25-30%. There is septal flattening of the interventricular septum consistent with right ventricular volume or pressure overload. Abnormal left ventricular diastolic filling is observed, consistent with impaired relaxation. Left Atrium: The left atrium is mildly dilated. Right Ventricle: The right ventricle is moderately dilated. The right ventricular global systolic function is moderately reduced. Right Atrium: The right atrium is mildly dilated. Aortic Valve: The aortic valve is trileaflet. The aortic valve leaflets are mildly thickened. There is no evidence of aortic regurgitation. There is no evidence of aortic stenosis. Mitral Valve: There is mitral annular calcification. The mitral valve leaflets are moderately thickened. There is moderate mitral regurgitation. There is no evidence of mitral stenosis. Tricuspid Valve: The tricuspid valve leaflets are normal. There is mild to moderate tricuspid regurgitation. The tricuspid regurgitant jet is eccentric. The right ventricular systolic pressure is estimated at 44 mmHg. There is evidence of mild to moderate pulmonary hypertension. There is no tricuspid stenosis. Pulmonic Valve: The pulmonic valve appears normal. There is trace to mild pulmonic regurgitation. There is no pulmonic stenosis. Pericardium: There is no significant pericardial effusion. A pericardial fat pad is visualized. Aorta: There is no dilatation of the ascending aorta. There is no dilatation of the aortic arch. The aortic root is normal in size. Pulmonary Artery: The main pulmonary artery appears normal. Venous: The inferior vena cava is dilated. There is an approximate 50% respiratory change in the inferior vena cava dimension. Contrast: Definity was used to optimize study. 4 mL of diluted Definity was utilized. Intravenous contrast was used to enhance endocardial border definition. Conclusions There is evidence of a dilated cardiomyopathy. Mild concentric left ventricular hypertrophy is observed. There is severely decreased left ventricular systolic function, akinesis of inferior posterior wall and severe global hypokinesis. The estimated ejection fraction is 25-30%. Abnormal left ventricular diastolic filling is observed, consistent with impaired relaxation. The right ventricular global systolic function is moderately reduced and the right ventricle is moderately dilated. The aortic valve leaflets are mildly thickened with good function. There is moderate mitral regurgitation. There is mild to moderate tricuspid regurgitation. The right ventricular systolic pressure is estimated at 44 mmHg. No prior echo to compare. Measurements Name Value Normal Range RVIDd (AP) 2D 3.5 cm (0.9 - 2.6) RVDdMajor (2D) 5.5 cm (2.2 - 4.4) RAd ISD 4CH 5.1 cm (3.4 - 4.9) RA (A4C)W 5 cm (2.9 - 4.6) IVSd (2D) 1.1 cm (0.6 - 1) LVPWd (2D) 1.1 cm (0.6 - 1) LVIDd (2D) 5.6 cm (3.6 - 5.4) LVIDs (2D) 5.1 cm - LV FS (2D) 9 % (25 - 45) Aortic Annulus 1.8 cm (1.4 - 2.6) Ao root diameter (2D) 2.8 cm (2.1 - 3.5) Ascending Ao 2.9 cm (2.1 - 3.4) Aortic arch 1.9 cm (1.8 - 3.4) LA dimension (AP) 2D 3.9 cm (2.3 - 3.8) LAd ISD 4CH 5.3 cm (2.9 - 5.3) LA ISD 4CH W 4.1 cm (2.5 - 4.5) Name Value Normal Range LA ESV SP 4CH (A/L) 63 ml - LA ESV SP 2CH (A/L) 65 ml - LA ESV BP (A/L) 64 ml - LA ESV BP (A/L) index 36 ml/m2 - LA ESV SP 4CH (MOD) 58 ml - LA ESV SP 2CH (MOD) 63 ml - Name Value Normal Range MV E-wave Vmax 0.91 m/sec - MV deceleration time 248.9 msec - MV A-wave Vmax 1.15 m/sec - MV E:A ratio 0.79 ratio - LV septal e' Vmax 0.02 m/sec - LV lateral e' Vmax 0.02 m/sec - LV E:e' septal ratio 45.5 ratio - LV E:e' lateral ratio 45.5 ratio - Name Value Normal Range AV Vmax 1.2 m/sec - AV VTI 25 cm - AV peak gradient 6.17 mmHg - AV mean gradient 3.43 mmHg - LVOT Vmax 0.73 m/sec - LVOT VTI 14.05 cm - LVOT peak gradient 2.22 mmHg - LVOT mean gradient 1.22 mmHg - SILVIANO Vmax 0.56 m/sec - Name Value Normal Range MR Vmax 4.37 m/sec - MR VTI 164.3 cm - MR flow (PISA) 51.43 ml/sec - MR ERO 0.12 cm2 - MR PISA radius 0.6 cm - MR alias Vmax 36 cm/sec - Name Value Normal Range TR Vmax 3 m/sec - TR peak gradient 36 mmHg - RAP 8 mmHg - RVSP 44 mmHg - IVC diameter 2.4 cm - Name Value Normal Range PV Vmax 0.82 m/sec - PV peak gradient 2.73 mmHg - IA end-diastolic Vmax 1.88 m/sec -
[2017-10-28] MEDS ORDERED: Metoprolol Succinate XL TAB* 25 MG PO ONE (17:45)
[2017-10-28] MEDS: Metoprolol Succinate XL TAB* 25 MG PO SCH ×2 (17:54→18:36)
--- NOTE | 2017-10-28 20:34 | CONS ---
CONSULTATION REPORT: DATE OF CONSULT: 10/28/17 PATIENT OF: Dr. Flores; Dr. Cisse, and Dr. Shankar. HISTORY OF PRESENT ILLNESS: This is a 61-year-old right-handed woman with a history of diabetes and smoking, who had acute onset last evening of significant aphasia with strong expressive component and right-sided weakness with difficulty getting off the floor with difficulty moving her arm and corner of mouth. She has had no prior strokes and the patient came in. Apparently, within an hour of onset, was evaluated by Telestroke, Dr. Tucker, at [place], and was considered to be a tPA candidate, got tPA beginning shortly before midnight. Her symptoms have cleared completely. Her long-term boyfriend says that her speech is back to normal and she is moving her right side without problem. I do not have Dr. Tucker's notes for evaluation at this time, I do not see it in the chart. PAST MEDICAL HISTORY: Asthma and diabetes and her smoking. She has no known elevated cholesterol. PAST SURGICAL HISTORY: She does not have past surgical history. MEDICATIONS: At home include an oral agent for her diabetes. ALLERGIES: Of note, she has an allergy to ASPIRIN. FAMILY HISTORY: The mother has diabetes. Father in his 50s but of unclear cause. SOCIAL HISTORY: She smokes half a pack a day on ongoing basis. She does not drink alcohol. She is disabled. She and her significant other have been together for 28 years. He is her healthcare proxy and she has 4 children. REVIEW OF SYSTEMS: Negative in all 14 spheres at this point other than her HPI. At the time of presentation, she had an expressive aphasia and was unable to talk. When the hospitalist admitted her, she had 4-/5 strength in her right upper extremity and no facial droop. PHYSICAL EXAM: Temperature 98.2, pulse 76, respiratory rate 15, blood pressure 104/60. She is alert and oriented with normal speech and comprehension. Naming was intact. Cranial nerves II through XII are intact and normal other than a trace right facial weakness. Fundi were benign. Motor exam revealed normal tone and strength bilaterally. She did have a minimal right pronator drift. Sensation is intact to light touch. Reflexes are 1 and equal, toes were downgoing. Neck was supple. Chest: Clear. Cardiovascular: Regular rate and rhythm. Abdomen: Soft with positive bowel sounds. DIAGNOSTIC IMAGING/LAB DATA: Her CT scan showed no acute bleed or stroke, there is evidence of a right subcortical probable infarct in the right thalamic region. There is some chronic microvascular disease. 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 She also had high-grade stenosis of the right common carotid artery. Lab work incudes normal CBC, normal INR and PTT. Normal CMP other than sodium of 130, hemoglobin A1c was 6.8. Troponin is up to 2 this morning. BNP 523. LDL was elevated at 97. UA was 1029 this morning. IMPRESSION AND PLAN: Sue had a stroke presumably in her left middle cerebral artery with an expressive aphasia and right hemiparesis, which has cleared now other than some trace right-sided findings, namely slight right facial weakness and very slight right pronator drift. The concern I have is that she has significant carotid disease and I am having the films sent to [place]. I will speak to Dr. Maldonado about when they would consider doing a possible endarterectomy on her. I discussed this with the patient. Statins have begun on the patient appropriately and after 24 hours, we will get a CT scan and then be started on Plavix. I would ordinarily put on both aspirin and Plavix, but she is allergic to ASPIRIN and I am going to find out further details of what the exact allergy is because she may benefit from being on dual therapy otherwise. Of note, she has elevated troponin and Dr. Cisse will be directing her whatever cardiac management she needs. 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 Her blood pressure will be treated within parameters and if she is still dehydrated, she will need further fluid pass and I will discuss this with Dr. Cisse. Thank you for sharing her case. [id number]/[facility] #: [id number] TERESSA
[2017-10-28] MEDS ORDERED: Atorvastatin* 80 MG TAB PO SCH (21:00)
--- NOTE | 2017-10-28 21:29 | RAD ---
INDICATION: CVA. Patient received TPA COMPARISON: CT October 27, 2017 TECHNIQUE: sagittal T1 FLAIR, axial diffusion, axial T1 FLAIR, axial T2, axial T2 FLAIR, and SWI images were acquired. FINDINGS: Craniocervical junction: The craniocervical junction appears normal. Ventricles/sulci: There is mild age-related cortical atrophy with compensatory dilatation of the CSF spaces. Brain parenchyma: Diffusion weighted images show small foci of cortical and subcortical hyperintensity in left frontal lobe consistent with acute ischemia. There is no associated mass effect. There are additional T2-weighted hyperintensities in the periventricular and subcortical white matter consistent with chronic microvascular ischemia. Intracranial hemorrhage: There is no intracranial hemorrhage. Extra-axial spaces: There are no extra-axial fluid collections or masses. Orbits: There are no MR abnormalities of the orbital structures. Paranasal sinuses/mastoid: The paranasal sinuses are clear. The mastoid air cells are well aerated.. Vascular: No abnormalities are seen. Other: None IMPRESSION: 1. Diffusion images demonstrate acute cortical and subcortical ischemia in the left parietal lobe lobe. There is no mass effect or hemorrhage. 2. Age-related atrophy with chronic microvascular ischemic changes.
[2017-10-28] MEDS: Ramipril CAP* 2.5 MG PO SCH (21:49)
[2017-10-28] MEDS ORDERED: Magnesium Sulfate 2 GM IV* 2 GM/50 ML BAG IV ONE (22:00)
--- NOTE | 2017-10-28 23:45 | CONS ---
CC: Hospitalist; Dr. Shankar * CONSULTATION REPORT: DATE OF CONSULT: 10/28/17 REASON FOR CONSULT: Elevated troponins and atherosclerotic risk. CHIEF COMPLAINT: Inability to speak and she feels hot. HISTORY OF PRESENT ILLNESS: Ms. Martinez is a 61-year-old woman with no prior cardiac history. The patient states she was just bending over cleaning a dog kennel, when she was unable to get off the floor and also unable to speak. This was from her history. ED and admission notes document that her speech was garbled and she was mumbling with a droop in the right corner of her mouth and right arm weakness. The patient presented to the emergency department with these complaints and was treated with tPA with reversal of her symptoms. The patient's original troponin was very mildly elevated at 0.07 but has continued to rise mildly. The patient denies chest pain, pressure at any time including now. The patient has been smoking for many years and has longstanding history of orthopnea, she does not sleep flat, but she cannot tell me how long it is, just said it is over a year. The patient denies recent travel, changes in her medications. She did say her daughter has had flu-like symptoms on and off for weeks and she has not felt that well for several weeks either but is very nonspecific. PAST MEDICAL HISTORY: History of asthma and diabetes, presumed COPD with active smoking. MEDICATIONS: Outpatient medications: Unknown. Inpatient medications include: 1. Intravenous fluid. 2. Normal saline 125 cc an hour. 3. Lipitor 80 mg a day. 4. Plavix 75 mg a day. 5. Labetalol p.r.n. 6. Zofran p.r.n. 7. Zoloft 25 mg a day. 8. D50 p.r.n. ALLERGIES: Include ASPIRIN. FAMILY HISTORY: Unknown to the patient. She has half sisters, who she is in touch with but does not know their history and does not know her parents' history. According to Dr. Flores's admission notes, her mother is living with a history of diabetes and her dad in his 50s. SOCIAL HISTORY: The patient is on SSI, is an active smoker. Lives with her daughter and other family members. REVIEW OF SYSTEMS: See history of present illness for acute onset of expressive aphasia, longstanding history of orthopnea. The patient denies recent fever, chills, sweats but does admit to feeling under the weather for several weeks. No history of chest pain, pressure, heaviness. No change in appetite. No recent weight changes. She denies fevers, chills, sweats, change of bowel or bladder habits, and all other review of systems was unremarkable. The patient complained of feeling very hot and sweaty while I was in the room. PHYSICAL EXAM: The patient is 5 feet 4 inches, weighs 177 pounds with a BMI of 30.5. Vitals today, blood pressure 112/69, pulse is 80, oxygen saturation on room air 95%, and temperature 98.3. General Appearance: Older woman appearing older than her 61 years, in a hospital bed, angled at about 60 degrees, appears uncomfortable. Psychologically, pleasant and cooperative. Neurologically, awake, alert, and oriented to person and place. I did not evaluate for time. Skin: Mildly moist and warm. No cyanosis or rashes appreciated. HEENT: Pupils are equal and round. She is edentulous. Mucous membranes were moist. Neck was thick without thyromegaly or lymphadenopathy. Good carotid pulses, no audible bruits. Breath sounds had wet crackles in the bases bilaterally extending at least a third of the way up the lungs. Coronary: S1, S2 regular. Abdomen: Overweight, active bowel sounds, soft and nontender. Lower extremities were warm and free of edema. DIAGNOSTIC STUDIES/LAB DATA: The patient's 12-lead ECG on 10/27/17 at 2307 shows sinus rhythm, 95 beats a minute. QRS axis +60s, normal AV and IV conduction times. Mild ST depression in the precordial leads as well as motion artifact. Repeat EKG done today at 7 in the morning shows normal sinus rhythm, 71 beats a minute, QRS axis -75, normal AV and IV conduction times, poor R-wave progression , and inverted T-waves across precordial leads, very concerning of Wellens' sign as well as inverted T waves and ST depression in the inferior leads. CT angiogram of the head from 10/27/17 shows high-grade stenosis at the origin of the right common carotid artery just beyond the bifurcation, occlusion of the origin of the right external carotid artery, atherosclerosis in the right carotid bulb approximately 50%, the left carotid bulb atherosclerosis approximately 70%, greater than 50% occlusion at the occlusion of the left subclavian, very small left vertebral artery, possibly congenital. Echocardiogram shows dilated hypertrophied left ventricle with severe global hypokinesis and akinesis of the inferoposterior wall, ejection fraction 25% to 30%, moderate decrease in RV systolic function, moderate mitral insufficiency, mild-to- moderate tricuspid insufficiency, and PA pressure of 44 mmHg. Sodium 133, potassium 4.3, BUN 14, creatinine 0.64, glucose 146. Hemoglobin A1c is 6.8. Total cholesterol 149, triglycerides 75, LDL cholesterol 97, HDL cholesterol 37. BNP of 523. Troponin #1, 0.07; troponin #2, 2.00; troponin #3 , 2.98. INR 0.92, PTT of 30.8. White count 7.7, hemoglobin 14.4, hematocrit 43 , and platelets 211. Urinalysis: 1+ blood, nitrite positive, esterase positive, bacteria noted. pH 0.129. ASSESSMENT AND PLAN: In summary, Sue Martinez is a 61-year-old woman, who is an active smoker, is overweight, has evidence of diabetes, who presented with acute onset of expressive aphasia and other neurological findings and received tPA for her acute stroke with reversal of symptoms. Ms. Martinez additionally has mild elevation in troponin and abnormal ECG, her echo is suggestive of either an old inferoposterior wall myocardial infarction or a severe ischemia to this region in addition to global hypokinesis and right ventricular hypokinesis. Ms. Martinez has peripheral vascular disease involving the carotid arteries. With respect to the patient's non-Q wave myocardial infarction now and evidence of significant vascular disease, I concur with continuation of Plavix and statin. For the cardiomyopathy and coronary disease, I would like to add metoprolol and for the cardiomyopathy, add an TIMI inhibitor. In terms of how to proceed with respect to imaging, options would be cardiac catheterization if intervention would be felt to be feasible from a neurological standpoint. Alternatively, we could start with a nuclear study to see and we may even need to proceed with viability imaging prior to heart catheterization. With the patient's diffuse carotid disease, she may have additional atherosclerosis in the arterial system and this needs to be taken into consideration, risks, benefits of any invasive procedures that could lead to further stroke. With the patient's history of this happening bending over, maybe a bubble study might be warranted. The patient additionally has risk for paroxysmal atrial fibrillation, which would be another stroke source and I agree with ongoing monitoring. In addition to the above, aggressive medical measures and further investigation into her cardiac ischemia, the patient needs to stop smoking and I discussed this actively with her in addition to improved diet and lifestyle when she gets home. Additional recommendations will be made pending the patient's clinical course. She is overall very high risk. [id number]/[facility] #: [id number] TERESSA
[2017-10-29] MEDS ORDERED: CMC:Pantoprazole TAB (NF) 40 MG TAB PO SCH (06:00)
--- NOTE | 2017-10-29 07:44 | RAD ---
INDICATION: CVA, status post TPA. COMPARISON: Comparison is made with a prior CT of the brain from October 27, 2017 and a prior MRI of the brain from October 28 2017. TECHNIQUE: Contiguous axial sections of the brain were obtained from the skull base to the vertex without contrast. FINDINGS: The ventricles, cisterns and sulci are within normal limits. There are multiple focal areas of decreased density in the subcortical and periventricular white matter suggestive of moderate to severe chronic small vessel ischemic changes. The previously noted infarct in the left temporal and parietal region is better seen on the MRI study. There is no evidence for hemorrhage or mass effect. No significant focal osseous abnormality is seen. The visualized portion of the paranasal sinuses and mastoid air cells appear clear. IMPRESSION: 1. NO EVIDENCE FOR HEMORRHAGE STATUS POST TPA. 2. MODERATE TO SEVERE CHRONIC SMALL VESSEL ISCHEMIC CHANGES. 3. THE PREVIOUSLY NOTED INFARCT IN THE LEFT TEMPOROPARIETAL REGION IS BETTER SEEN ON THE PRIOR MRI STUDY.
--- NOTE | 2017-10-29 07:56 | PN ---
Subjective Date of Service: 10/29/17 Interval History: No c/o. Objective Active Medications: Atorvastatin Calcium (Lipitor*) 80 mg PO 2100 [facility] Last Admin: 10/28/17 21:49 Dose: 80 mg Clopidogrel Bisulfate (Plavix Tab*) 75 mg PO DAILY [facility] Dextrose (D50w Syringe 50 Ml*) 12.5 gm IV PUSH .FOR FS < 60 - SS PRN PRN Reason: FS < 60 Sodium Chloride (Ns 0.9% 1000 Ml*) 1,000 mls @ 125 mls/hr IV PER RATE [facility] Insulin Human Lispro (Humalog*) 0 units SUBCUT ACHS [facility] PRN Reason: Protocol Last Admin: 10/28/17 22:38 Dose: Not Given Labetalol HCl (Trandate Iv*) 20 mg IV PUSH Q6H PRN PRN Reason: SBP>180 DBP>110 Metoprolol Succinate (Toprol Xl Tab*) 25 mg PO 0900 [facility] Ondansetron HCl (Zofran Inj*) 4 mg IV Q6H PRN PRN Reason: NAUSEA Ramipril (Altace Cap*) 2.5 mg PO DAILY [facility] Last Admin: 10/28/17 21:49 Dose: 2.5 mg Sertraline HCl (Zoloft*) 25 mg PO DAILY [facility] Last Admin: 10/28/17 08:52 Dose: 25 mg Vital Signs - 8 hr 10/29/17 10/29/17 10/29/17 00:00 00:01 01:00 Temperature Pulse Rate 66 66 63 Respiratory 24 17 19 Rate Blood Pressure 109/62 (mmHg) O2 Sat by Pulse 95 95 94 Oximetry 10/29/17 10/29/17 10/29/17 01:44 02:00 02:01 Temperature Pulse Rate 61 59 63 Respiratory 22 20 22 Rate Blood Pressure 102/68 116/64 (mmHg) O2 Sat by Pulse 93 89 97 Oximetry 10/29/17 10/29/17 10/29/17 03:00 03:01 04:00 Temperature 97.7 F Pulse Rate 58 57 59 Respiratory 21 21 17 Rate Blood Pressure 102/67 (mmHg) O2 Sat by Pulse 90 91 100 Oximetry 10/29/17 10/29/17 10/29/17 04:01 05:00 05:01 Temperature Pulse Rate 59 54 55 Respiratory 21 18 18 Rate Blood Pressure 93/59 (mmHg) O2 Sat by Pulse 99 99 99 Oximetry 10/29/17 10/29/17 10/29/17 06:00 06:02 07:00 Temperature Pulse Rate 54 55 55 Respiratory 19 20 24 Rate Blood Pressure 117/60 107/60 (mmHg) O2 Sat by Pulse 99 100 97 Oximetry 10/29/17 07:49 Temperature 98.6 F Pulse Rate Respiratory Rate Blood Pressure (mmHg) O2 Sat by Pulse Oximetry Oxygen Devices in Use Now: Nasal Cannula Appearance: Alert, sitting on the edge of the ICU bed. In good spirits. Looks comfortable. Eyes: No Scleral Icterus Neck: NL Appearance and Movements; NL JVP, No Thyroid Enlargement, Masses Respiratory: Symmetrical Chest Expansion and Respiratory Effort, Clear to Auscultation, Clear to Percussion Cardiovascular: NL Sounds; No Murmurs; No JVD, RRR, No Edema, - Extremities: No Edema, No Clubbing, Cyanosis, - Skin: No Rash or Ulcers, No Nodules or Sclerosis, - Neurological: Alert and Oriented x 3, NL Sensation Result Diagrams: 10/28/17 05:08 10/28/17 06:05 Additional Lab and Data: Lab Results 10/27/17 10/27/17 10/27/17 Range/Units 23:10 23:10 23:10 WBC 8.7 (3.5-10.8) 10^3/ul RBC 5.09 (4.0-5.4) 10^6/ul Hgb 15.5 (12.0-16.0) g/dl Hct 45 (35-47) % MCV 88 (80-97) fL MCH 30 (27-31) pg MCHC 34 (31-36) g/dl RDW 15 (10.5-15) % Plt Count 216 (150-450) 10^3/ul MPV 8 (7.4-10.4) um3 Neut % (Auto) 74.7 (38-83) % Lymph % (Auto) 16.2 L (25-47) % Mcmullen % (Auto) 6.0 (1-9) % Eos % (Auto) 2.2 (0-6) % Baso % (Auto) 0.9 (0-2) % Absolute Neuts (auto) 6.5 (1.5-7.7) 10^3/ul Absolute Lymphs (auto) 1.4 (1.0-4.8) 10^3/ul Absolute Monos (auto) 0.5 (0-0.8) 10^3/ul Absolute Eos (auto) 0.2 (0-0.6) 10^3/ul Absolute Basos (auto) 0.1 (0-0.2) 10^3/ul Absolute Nucleated RBC 0 10^3/ul Nucleated RBC % 0 INR (Anticoag Therapy) 0.92 (0.77-1.02) APTT 30.8 (26.0-36.3) seconds Sodium 130 L (133-145) mmol/L Potassium 4.2 (3.5-5.0) mmol/L Chloride 96 L (101-111) mmol/L Carbon Dioxide 24 (22-32) mmol/L Anion Gap 10 (2-11) mmol/L BUN 16 (6-24) mg/dL Creatinine 0.70 (0.51-0.95) mg/dL Est GFR ( Amer) 109.4 (>60) Est GFR (Non-Af Amer) 85.1 (>60) BUN/Creatinine Ratio 22.9 H (8-20) Glucose 167 H (70-100) mg/dL Lactic Acid (0.5-2.0) mmol/L Calcium 10.1 (8.6-10.3) mg/dL Total Bilirubin 0.50 (0.2-1.0) mg/dL AST 23 (13-39) U/L ALT 13 (7-52) U/L Alkaline Phosphatase 107 H (34-104) U/L Troponin I 0.07 H* (<0.04) ng/mL B-Natriuretic Peptide ( - 100) pg/mL Total Protein 7.8 (6.4-8.9) g/dL Albumin 4.1 (3.2-5.2) g/dL Globulin 3.7 (2-4) g/dL Albumin/Globulin Ratio 1.1 (1-3) Triglycerides 148 mg/dL Cholesterol 163 mg/dL LDL Cholesterol 92 mg/dL HDL Cholesterol 41.4 mg/dL 10/27/17 10/27/17 Range/Units 23:10 23:10 WBC (3.5-10.8) 10^3/ul RBC (4.0-5.4) 10^6/ul Hgb (12.0-16.0) g/dl Hct (35-47) % MCV (80-97) fL MCH (27-31) pg MCHC (31-36) g/dl RDW (10.5-15) % Plt Count (150-450) 10^3/ul MPV (7.4-10.4) um3 Neut % (Auto) (38-83) % Lymph % (Auto) (25-47) % Mcmullen % (Auto) (1-9) % Eos % (Auto) (0-6) % Baso % (Auto) (0-2) % Absolute Neuts (auto) (1.5-7.7) 10^3/ul Absolute Lymphs (auto) (1.0-4.8) 10^3/ul Absolute Monos (auto) (0-0.8) 10^3/ul Absolute Eos (auto) (0-0.6) 10^3/ul Absolute Basos (auto) (0-0.2) 10^3/ul Absolute Nucleated RBC 10^3/ul Nucleated RBC % INR (Anticoag Therapy) (0.77-1.02) APTT (26.0-36.3) seconds Sodium (133-145) mmol/L Potassium (3.5-5.0) mmol/L Chloride (101-111) mmol/L Carbon Dioxide (22-32) mmol/L Anion Gap (2-11) mmol/L BUN (6-24) mg/dL Creatinine (0.51-0.95) mg/dL Est GFR ( Amer) (>60) Est GFR (Non-Af Amer) (>60) BUN/Creatinine Ratio (8-20) Glucose (70-100) mg/dL Lactic Acid 1.6 (0.5-2.0) mmol/L Calcium (8.6-10.3) mg/dL Total Bilirubin (0.2-1.0) mg/dL AST (13-39) U/L ALT (7-52) U/L Alkaline Phosphatase (34-104) U/L Troponin I (<0.04) ng/mL B-Natriuretic Peptide 523 H ( - 100) pg/mL Total Protein (6.4-8.9) g/dL Albumin (3.2-5.2) g/dL Globulin (2-4) g/dL Albumin/Globulin Ratio (1-3) Triglycerides mg/dL Cholesterol mg/dL LDL Cholesterol mg/dL HDL Cholesterol mg/dL Microbiology and Other Data: Microbiology 10/28/17 04:00 Nasal Screen MRSA (PCR)(NAYAN) - Final Nasal Mrsa Not Detected Assess/Plan/Problems-Billing Assessment: - Patient Problems (1) Cerebrovascular accident aborted by administration of thrombolytic agent Status: Acute Code(s): I63.9 - CEREBRAL INFARCTION, UNSPECIFIED SNOMED Code( s): 314027465 Comment: MRI pending. No neuro sequelae. Pt states she can't take ASA due to ulcers, and took med for reflux at home. Discussed with Dr. Messina. Continue high-dose statin. Pt scheduled to go to 11/[address] Cartwright [phone]. (2) Diabetes Status: Acute Code(s): E11.9 - TYPE 2 DIABETES MELLITUS WITHOUT COMPLICATIONS SNOMED Code(s): 74158545 Comment: D/C off metformin. FS acceptable range for now while patient in preparation for surgery. (3) Tobacco abuse Status: Acute Code(s): Z72.0 - TOBACCO USE SNOMED Code(s): 818078390 Comment: Patient advised to quit smoking and avoid second hand smoke. I note that her smokes. (4) Depression Status: Acute Code(s): F32.9 - MAJOR DEPRESSIVE DISORDER, SINGLE EPISODE, UNSPECIFIED SNOMED Code(s): 69426847 Comment: Give 50% home dose sertraline. (5) Ischemic cardiomyopathy Status: Acute Code(s): I25.5 - ISCHEMIC CARDIOMYOPATHY SNOMED Code(s): 745356451 Comment: Started ramipril 10/28 PM, starting metoprolol 10/29 PM. Continue clopidogrel. Stress test 10/29 Showed large infarct, no significant area of ischemia per Dr. Campbell. Discussed with Dr. Harman Barrientos as well. (6) GERD (gastroesophageal reflux disease) Status: Acute Code(s): K21.9 - GASTRO-ESOPHAGEAL REFLUX DISEASE WITHOUT ESOPHAGITIS SNOMED Code(s): 290796960 Comment: Pantoprazole ordered while on clopidogrel. Status and Disposition: Discharge now. Fup Siddharth Amado.
[2017-10-29] MEDS: Insulin LISPRO* 1 UNITS UNIT SUBCUT SCH ×2 (08:22→13:22)
[2017-10-29] MEDS: Sertraline* 25 MG TAB PO SCH (08:27)
[2017-10-29] MEDS: Ramipril CAP* 2.5 MG PO SCH (08:27)
[2017-10-29] MEDS ORDERED: Metoprolol Succinate XL TAB* 25 MG PO SCH (09:00)
[2017-10-29] MEDS ORDERED: Clopidogrel TAB* 75 MG PO SCH (09:00)
[2017-10-29] MEDS ORDERED: Regadenoson* 0.4 MG/5 ML SYRINGE ONE (10:14)
--- NOTE | 2017-10-29 12:56 | RAD ---
Edited for charges. INDICATION: Elevated troponin, cardiomyopathy. COMPARISON: There are no prior studies available for comparison. Technique: A single day myocardial perfusion stress study was performed. Initially the resting study was performed. The patient was given an intravenous injection of 10.4 mCi of technetium 99m tetrofosmin and and the heart was imaged in multiple projections. The patient returned later in the day and under the direction of Dr. Campbell, the patient was given intervenous injection of Lexiscan. Subsequently the patient was given intravenous injection of 25.2 mCi of technetium 99m tetrofosmin and the heart was imaged in multiple projections. Images were reconstructed in the axial, sagittal and coronal planes and in a 3- D format. FINDINGS: The left ventricle appears dilated and there is a global hypokinesis consistent with the patient's history. The left ventricular ejection fraction is calculated to be 32%. Review of the images demonstrates a large defect involving the apex and inferolateral garcia which appears similar on the post pharmacologic stress and resting data sets most consistent with a large infarct. There is also a small area of decreased activity in the anteroseptal which appears smaller on the resting data set suggestive of a small area of ischemia. IMPRESSION: 1. FINDINGS MOST CONSISTENT WITH A LARGE INFARCT INVOLVING THE INFEROLATERAL WALL AND APEX. 2. FINDINGS SUGGESTIVE OF SMALL AREA OF ISCHEMIA INVOLVING THE ANTEROSEPTAL WALL. 3. DECREASED LEFT VENTRICULAR EJECTION FRACTION CALCULATED TO BE 32%. ASSESSMENT: High risk. Based on imaging criteria from ACC/AHA 2002 Guideline Update for the Management of Patients With Chronic Stable Angina Table 23. Noninvasive Risk Stratification. MTDD
[2017-10-29 15:13] VITALS: BP 107/60
--- NOTE | 2017-10-29 23:12 | PN ---
NEUROLOGICAL FOLLOWUP NOTE: DATE OF VISIT: 10/29/17 PATIENT OF: Dr. Cisse and . HISTORY: There continues to be no speech problems, numbness, weakness. She has been out of bed a couple of times, walking without problem, and she has no complaints. I spoke to them further about the ASPIRIN allergy. She apparently gets short of breath and has stomach issues. MEDICATIONS: 1. Lipitor 80 mg daily. 2. Plavix 75 daily. 3. Humalog p.r.n. 4. Metoprolol 25 mg a day. 5. Protonix 40 mg a day. 6. Altace 2.5 daily. 7. Zoloft 25 mg daily. PHYSICAL EXAMINATION: Temperature 98.6, pulse 53, respirations 18, blood pressure 108/62. She is alert and oriented with normal speech, comprehension. Cranial nerves II through XII are intact. Motor exam revealed normal tone and strength. She has no clear pronator drift. There is minor asymmetry, but this is improved from the day before. Reflexes 1. Toes were downgoing. Chest: Clear. Cardiovascular: Regular rate and rhythm. Abdomen: Soft with positive bowel sounds. DIAGNOSTIC STUDIES: I reviewed her MRI scan and CT, which showed diffuse white matter disease and an acute stroke in the left parietal lobe that is relatively small. Troponin peaked to 3.96. Glucose 121. She was seen by Dr. Pena for elevated troponin with abnormal EKG with possible severe ischemia on her echo. She has metoprolol and an TIMI inhibitor. She is getting a nuclear study to further evaluate the ischemia. I discussed her case with the vascular neurosurgeon at [place] yesterday and he is planning on seeing this coming Wednesday with possibility of doing an endarterectomy in the near future, depending on the acuity of her cardiac disease, which we will have to make a coordinated game plan and may affect timing of different procedures. Dr. Cisse is going to try to get further information about the ASPIRIN allergy. This would be good for her to be on dual platelet agents and we will do an echo with bubble study. Thank you for sharing her case. [id number]/[facility] #: [id number] MTDD
--- NOTE | 2017-10-31 02:10 | DS ---
CC: Dr. Messina, Dr. Pena DISCHARGE SUMMARY: DATE OF ADMISSION: 10/28/17 DATE OF DISCHARGE: 10/29/17 HOSPITAL COURSE: This 61-year-old woman presented with dysarthria and right- sided weakness. History is detailed in the admission note. This occurred very abruptly when she was cleaning a dog kennel in her house at home. On arrival to the emergency room, she had expressive aphasia and her speech was garbled and mumbling. There was facial droop on the right and weakness of the right arm. The patient had telestroke services from [facility]. The patient was determined to be a tPA candidate and received tPA. Following tPA administration, her speech improved, but the next day all neurologic signs and symptoms had resolved. The patient was monitored in the ICU for 48 hours. Her troponin was 0.07 and rapidly kushal to a peak of about 3. Echocardiogram showed ejection fraction of 25% to 30%. A nuclear stress test was done, there was large area of akinesis of the inferolateral wall and apex. There was a very small area of ischemia. The patient was seen in consultation by Dr. Messina and Dr. Pena. Her CTA showed the right common carotid high-grade stenosis. The patient has been referred to Dr. Cartwright, [facility], where she will have to see him on 11/02/17. She was started on metoprolol, ramipril, clopidogrel. She has a listed allergy to ASPIRIN. She said she had trouble with ulcers while she was on aspirin in the past. FINAL DIAGNOSES: 1. Cerebrovascular accident with good recovery after tPA. 2. Acute coronary event with ischemic cardiomyopathy. 3. High-grade stenosis right common carotid artery. 4. Diabetes. 5. Tobacco use disorder. DISCHARGE MEDICATIONS: 1. Atorvastatin 80 mg h.s. 2. Clopidogrel 75 mg daily. 3. Pantoprazole 40 mg daily. 4. Ramipril 2.5 mg daily. 5. Sertraline 25 mg daily, this is a reduced dose. 6. Metoprolol 25 mg one half tablet b.i.d. [id number]/[facility] #: [id number] [facility]
== END 2017-10-29 16:00 | disposition home or self-care (01) ==
LOC: ED 22:52 → ICU 10-28 02:07 → INTOOBSV 10-28 02:07
PROVIDERS: ADMIT Hospitalist; ATTEND Internal Medicine
DX: I63.9 Cerebral infarction, unspecified (principal); I42.9 Cardiomyopathy, unspecified; I65.21 Occlusion and stenosis of right carotid artery; E11.9 Type 2 diabetes mellitus without complications; R74.8 Abnormal levels of other serum enzymes; Z79.899 Other long term (current) drug therapy; Z88.6 Allergy status to analgesic agent; F17.210 Nicotine dependence, cigarettes, uncomplicated
CPT/HCPCS: 36415; 70450; 70496; 70498; 70551; 71045; 78452; 80048; 80053; 80061; 81003; 81015; 82550; 82553; 83036; 83605; 83735; 83880; 84484; 85025; 85610; 85730; 87077; 87086; 87186; 87641; 93005; 93306; 94760; 96365; 96375; 99284; 99291; A9270-GY; A9502; C8929; G0378; J2405; J2785; J2997; J3475; Q9967